=== PATIENT | male | born 2000 | race Two or more races ===

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

== ENCOUNTER 2022-12-06 18:33 | Emergency (ER) | payer MEDICAID ==
[2022-12-06 18:54] VITALS: BP 105/65; PULSE 69
[2022-12-06] MEDS ORDERED: Bupivacaine 0.5%/EPINEPHrine 1:200,000 30 ML SDV INJECT ONE (19:56)
[2022-12-06] MEDS ORDERED: Lidocaine 1% 10 ML MDV INJECT ONE (19:56)
== END 2022-12-06 20:41 | disposition home or self-care (01) ==
LOC: JD.ED 18:33
DX: S61.211A Laceration without foreign body of left index finger without damage to nail, initial encounter (principal); J45.909 Unspecified asthma, uncomplicated; Z91.030 Bee allergy status; W25.XXXA Contact with sharp glass, initial encounter
CPT/HCPCS: 12001; 99282; J3490; 99283